=== PATIENT | male | born 1945 | race Caucasian/White ===

== ENCOUNTER 2021-03-05 23:23 | Emergency (ER) | payer BC ==
[~2021-03-05] VITALS: Ht 182.9 cm; Wt 90.7 kg
--- NOTE | 2021-03-05 23:30 | NUR ---
Pt ambulated to ER with c/o chronic neck pain for 6 months. A/O x4, no SOB or labored breathing. Denies CP/pressure. No GI/ distress.
--- NOTE | 2021-03-05 23:40 | NUR ---
Dr. Ba at bedside, MSE in progress.
[2021-03-06] MEDS ORDERED: KETOROLAC TROMETHAMINE 30 MG INJ IM ONE (00:15)
--- NOTE | 2021-03-06 00:22 | NUR ---
Pt taken down for CT.
[2021-03-06] MEDS ORDERED: KETOROLAC TROMETHAMINE 30 MG INJ ONE (00:25)
--- NOTE | 2021-03-06 00:30 | NUR ---
Returned from CT, stable condition.
[2021-03-06] MEDS ORDERED: CYCL10TA9 PO (01:17)
[2021-03-06] MEDS ORDERED: NAPR-1164 PO (01:17)
[2021-03-06] MEDS ORDERED: OXYC-128 PO (01:17)
--- NOTE | 2021-03-06 01:23 | NUR ---
Patient discharged to home in stable condition. Written and verbal after care instructions given. Patient verbalizes understanding of instructions. Stressed follow up or return to ER for worsening s/s. Ambulated from ER with stable gait. All belongings with patient. Driven home by taxi.
[2021-03-06 01:24] VITALS: BP 144/81
== END 2021-03-06 01:24 | disposition home or self-care (01) ==
LOC: ER 23:28
DX: S16.1XXA Strain of muscle, fascia and tendon at neck level, initial encounter (principal); X58.XXXA Exposure to other specified factors, initial encounter; Y92.89 Other specified places as the place of occurrence of the external cause; M85.88 Other specified disorders of bone density and structure, other site; R63.4 Abnormal weight loss; Z68.27 Body mass index [BMI] 27.0-27.9, adult
CPT/HCPCS: 72125; 96372; 99284; J1885